=== PATIENT | male | born 2000 | race Caucasian/White ===

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

== ENCOUNTER 2019-04-14 12:38 | Emergency (ER) | payer OTHER ==
[2019-04-14] MEDS ORDERED: Diphtheria,Pertussis(Acell),Tetanus Vaccine 0.5 ML Syringe IM ONE (13:04)
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
[2019-04-14 14:29] VITALS: BP 128/73
== END 2019-04-14 13:35 | disposition home or self-care (01) ==
LOC: MW.ED 12:38
DX: S02.5XXA Fracture of tooth (traumatic), initial encounter for closed fracture (principal); S09.93XA Unspecified injury of face, initial encounter; Z23 Encounter for immunization; W20.8XXA Other cause of strike by thrown, projected or falling object, initial encounter; Y99.0 Civilian activity done for income or pay
CPT/HCPCS: 90471; 90715; 99282